=== PATIENT | female | born 1955 | race Caucasian/White ===

== ENCOUNTER → 2016-05-31 | Outpatient (CLI) | payer BC, MEDICARE ==
[~2016-05-31] MED LIST: "\\\"PREP SPRAY\\\"-TIN4 OZ"; CLOBETASOL EMOL15 GM TOP; CRESTOR10 MG PO; DRISDOL 5050000 UNIT PO; FOLIC ACID1 MG PO; GLUCOPHAGE500 MG PO; GUIATUSS AC (D480 ML PO; JARDIANCE25 MG PO; METHOTREXATE (2.5 MG PO; METHOTREXATE2.5 MG PO; PROBIOTIC1 EAC4 PO; RANITIDINE HCL150 M1 PO; TUMS REGULAR ST1 TAB PO; TYLENOL EXTRA500 MG PO; VALIUM5 MG PO; VICTOZA 3-0.6 MG/0.1 SUB-Q; [UNRECOGNIZED DRUG - CODE] TOP; [UNRECOGNIZED DRUG - OTHER] TOP
== END | disposition disaster alternative care site (69) ==
LOC: GRAD 10:58
DX: F17.210 Nicotine dependence, cigarettes, uncomplicated (principal); R91.1 Solitary pulmonary nodule
CPT/HCPCS: G0297

== ENCOUNTER → 2016-06-09 | Day surgery (SDC) | payer BC, MEDICARE ==
[~2016-06-09] VITALS: Ht 154.9 cm; Wt 68.1 kg
--- NOTE | ~2016-06-09 | OR ---
PATIENT'S NAME: WILFREDO IRAHETA [facility] AGE: 60 Y [address] ROOM: [place] [address] LOCATION: GEND ADMIT DATE: 06/09/2016 OR/Procedure Report DISCHARGE DATE: FAMILY PHYSICIAN: Nicolas Delarosa MD ATTENDING PHYSICIAN: DYANA TRACY (GASTRO) SURGEON: Jake Tracy MD CHIEF PAYROLL CLERK: DATE OF PROCEDURE: 06/09/2016 PROCEDURE PERFORMED: Colonoscopy with polypectomy. INDICATIONS: Screening. MEDICATIONS: Please see anesthesiology record for details. CONSENT: The risks/benefits/alternatives were discussed, and the patient or her power of outbound sales advisor expressed understanding and agreed to proceed. Informed consent was obtained and placed on the chart. Time-out was completed prior to starting the procedure. DESCRIPTION OF PROCEDURE: The patient was placed in the left lateral decubitus position. One lead EKG monitoring was used along with intermittent blood pressure monitoring and pulse oximetry. The above medications were given and titrated to response. Once adequate sedation was completed, rectal exam was performed. The colonoscope was then passed through the rectum, into the sigmoid colon. The scope was then passed through the descending, transverse, and ascending colon. The scope was then passed into the cecum. The cecum was identified by the ileocecal valve and appendiceal orifice. The scope was then withdrawn. On withdrawal, the mucosa of the colon was examined. In the rectum, retroflexion was completed. The scope was then withdrawn from the patient. The patient tolerated the procedure well. There were no complications. SUMMARY OF FINDINGS: 1. Cecal polyp, 4 mm, sessile, removed using snare without cautery. 2. Diverticulosis, mild, mainly in the sigmoid colon. 3. Internal hemorrhoids, small, nonbleeding. ASSESSMENT AND PLAN: Screening colonoscopy: The patient had one polyp removed on exam today. I suspect this is a tubular adenoma. Therefore, we will recommend surveillance exam in 5 years. If for some reason, this returns as a hyperplastic polyp, then she can go to a 10-year interval. PATIENT'S NAME: WILFREDO IRAHETA [facility] AGE: 60 Y [address] ROOM: [place] [address] LOCATION: GEND ADMIT DATE: 06/09/2016 OR/Procedure Report DISCHARGE DATE: FAMILY PHYSICIAN: Nicolas Delarosa MD ATTENDING PHYSICIAN: DYANA TRACY (GASTRO) J PAMELA TRACY MD JRT/modl /[id number] d: 06/09/16 1849 t: 07/14/16 0844, OPERATIVE SUMMARY
== END | disposition disaster alternative care site (69) ==
LOC: GPOC 06-06 10:00 → GEND 09:00
PROC: 0DBH8ZZ Excision of Cecum, Via Natural or Artificial Opening Endoscopic (ICD-10-PCS; principal; 2016-06-09)
DX: Z12.11 Encounter for screening for malignant neoplasm of colon (principal); D12.0 Benign neoplasm of cecum; K57.30 Diverticulosis of large intestine without perforation or abscess without bleeding; K64.8 Other hemorrhoids; J44.9 Chronic obstructive pulmonary disease, unspecified; E78.5 Hyperlipidemia, unspecified; E11.9 Type 2 diabetes mellitus without complications; F41.9 Anxiety disorder, unspecified; F31.30 Bipolar disorder, current episode depressed, mild or moderate severity, unspecified; F17.200 Nicotine dependence, unspecified, uncomplicated; F40.240 Claustrophobia; E55.9 Vitamin D deficiency, unspecified; Z98.51 Tubal ligation status; Z88.0 Allergy status to penicillin; Z88.2 Allergy status to sulfonamides; Z88.8 Allergy status to other drugs, medicaments and biological substances; Z90.49 Acquired absence of other specified parts of digestive tract; Z98.49 Cataract extraction status, unspecified eye; Z79.899 Other long term (current) drug therapy
CPT/HCPCS: J7030

== ENCOUNTER → 2016-08-22 | Outpatient (CLI) | payer BC, MEDICARE | END | disposition disaster alternative care site (69) | LOC: GRAD 12:58 | DX: F17.210 Nicotine dependence, cigarettes, uncomplicated (principal); R91.1 Solitary pulmonary nodule | CPT/HCPCS: G0297 ==